=== PATIENT | male | born 1960 | race Caucasian/White ===

== ENCOUNTER 2023-08-30 10:55 | Emergency (ER) | payer OTHER ==
[~2023-08-30] VITALS: Ht 170.2 cm; Wt 56.5 kg
[2023-08-30] MEDS ORDERED: HYDROCODONE/ACETA 5/325 TAB PO ONE (11:45)
[2023-08-30] MEDS ORDERED: IBUPROFEN 400 MG TAB PO ONE (11:45)
[2023-08-30] MEDS ORDERED: HYDROCODON-ACE1 EA11 PO (12:48)
[2023-08-30 13:10] VITALS: BP 146/78
== END 2023-08-30 13:11 | disposition home or self-care (01) ==
LOC: ED 10:55
DX: S22.41XA Multiple fractures of ribs, right side, initial encounter for closed fracture (principal); W01.10XA Fall on same level from slipping, tripping and stumbling with subsequent striking against unspecified object, initial encounter
CPT/HCPCS: 71250; 99283-25; A9270

== ENCOUNTER 2024-12-16 11:16 | Emergency (ER) | payer OTHER ==
[~2024-12-16] VITALS: Ht 170.2 cm; Wt 53.0 kg
[~2024-12-16 11:16] MED LIST: HYDROCODON-ACE1 EA11 PO
[2024-12-16] MEDS ORDERED: HYDROCODON-ACE1 EA10 PO (16:12)
[2024-12-16 16:18] VITALS: BP 152/97
== END 2024-12-16 16:18 | disposition home or self-care (01) ==
LOC: ED 11:16
DX: M25.552 Pain in left hip (principal); W19.XXXA Unspecified fall, initial encounter
CPT/HCPCS: 72192; 73502; 99284-25